=== PATIENT | female | born 1960 | race Caucasian/White ===

== ENCOUNTER 2017-08-14 14:42 | Inpatient (IN) ==
[2017-08-14 16:05] LABS: Apearance,Urine Slightly Hazy (Clear); Bilirubin,Urine Negative (Negative); Blood, Urine Moderate mg/dL (Negative); Glucose,Urine (UA) Negative (Negative); Ketones,Urine Negative (Negative); Nitrite,Urine Negative (Negative); Protein,Urine 30 MG/DL; RBC,Urine 8 /HPF (0-4); Squamous Epithelial Cell,Urine Occasional /HPF (0-10); Urine Color Yellow (Yellow); Urine Specific Gravity 1.011 (1.001-1.035); WBC,Urine 2 /HPF (0-6)
[2017-08-14 16:08] LABS: Barbiturates Screen,Urine Negative (Negative); Benzodiazepines Screen,Urine Positive (Negative); Cannabinoid Screen,Urine Negative (Negative); Opiate Screen,Urine Positive (Negative); Phencyclidine Screen,Urine Negative (Negative)
[2017-08-14 16:50] LABS: Basophils % 0.1 % (0.0-0.8); Hematocrit 34.8 VOL% (35.7-47.0); Hemoglobin 11.7 GM/DL (12.0-16.0); Immature Granulocytes % 0.5 %; Immature Granulocytes Absolute 0.07 #; Lymphocytes # 0.7 10*3/uL (1.4-4.0); Mean Corpuscular HGB Conc 33.6 GM/DL (32-36); Mean Corpuscular Hemoglobin 30 PG (27-34); Mean Corpuscular Volume 89.5 FL (87-102); Mean Platelet Volume 11.8 FL (9.6-12.0); Monocytes # 0.7 10*3/uL (0.11-0.8); Monocytes % 5.2 % (1.7-12.7); NRBC # 0.02 10*3/uL; Neutrophils # 12.4 10*3/uL (1.4-7.4); Neutrophils % 89.2 % (38.7-73.9); Platelet Count 231 T/CUMM (130-400); Red Blood Count 3.89 MC/CUMM (3.8-5.5); Red Cell Distribution Width 12.8 % (9.3-17.3); White Blood Count 13.9 T/CUMM (4-12)
[2017-08-14 17:02] LABS: ABG HCO3 27.9 MMOL/L (20-26); ABG Oxygen Saturation 90.4 % (95-100); ABG PCO2 46.7 MM HG (35-48); ABG PH 7.408 (7.35-7.45); ABG PO2 62.2 MM HG (80-95); ABG TCO2 26.4 MMOL/L (23-27); Allen Test Positive; Pt O2 Delivery Device Room Air
[2017-08-14 17:32] LABS: Albumin 2.9 G/DL (3.4-5.0); Bilirubin,Total 0.9 MG/DL (0.2-1.0); Calcium 7.5 MG/DL (8.5-10.1); Osmolality,Calculated 285.7 MOS/KG (273-304); Potassium 3.3 MMOL/L (3.5-5.1); Total Protein 7.2 G/DL (6.4-8.3)
[2017-08-14 17:33] LABS: Troponin I Only 1.59 NG/ML (0.00-0.045)
[2017-08-14] MEDS ORDERED: ONDANSETRON 4 MG/2 ML VIAL IV PRN (18:33)
[2017-08-14] MEDS ORDERED: SODIUM CHLORIDE 0.9% 1,000 ML IV ONE (18:36)
[2017-08-14] MEDS ORDERED: ALBUTEROL/IPRATROPIUM 3 ML NEB RESP TX PRN (18:38)
[2017-08-14] MEDS: ALBUTEROL/IPRATROPIUM 3 ML NEB RESP TX SCH (19:41)
[2017-08-14 19:58] LABS: Hepatitis A Ab IgM Quant 0.08 Index; Hepatitis A Ab IgM Result Negative (Negative); Hepatitis B Core IgM Quant 0.16 Index; Hepatitis B Core IgM Result Negative (Negative); Hepatitis B Surface Ag Quant < 0.10 Index; Hepatitis B Surface Ag Result Negative (Negative); Hepatitis C Virus Ab Quant 0.11 Index; Hepatitis C Virus Ab Result Negative (Negative)
[2017-08-14] MEDS: SODIUM CHLOR 0.9% KCL 20 MEQ 20 MEQ/1,000 ML BAG IV SCH (22:15)
[2017-08-14] MEDS: ISOSORBIDE MONONITRATE 30 MG TABLET PO SCH (22:57)
[2017-08-14] MEDS: ARIPiprazole 10 MG TABLET PO SCH (23:02)
[2017-08-14] MEDS: ASPIRIN EC 81 MG TABLET PO SCH (23:02)
[2017-08-15] MEDS: ALBUTEROL/IPRATROPIUM 3 ML NEB RESP TX SCH ×4 (00:58→20:15)
[2017-08-15] MEDS: SODIUM CHLOR 0.9% KCL 20 MEQ 20 MEQ/1,000 ML BAG IV SCH ×4 (06:15→17:40)
[2017-08-15] MEDS: LEVOTHYROXINE 50 MCG TABLET PO SCH (06:24)
[2017-08-15 06:29] LABS: Basophils % 0.1 % (0.0-0.8); Hematocrit 32.8 VOL% (35.7-47.0); Hemoglobin 11.1 GM/DL (12.0-16.0); Immature Granulocytes % 0.7 %; Immature Granulocytes Absolute 0.07 #; Lymphocytes # 0.9 10*3/uL (1.4-4.0); Lymphocytes % 8.4 % (21.3-54.2); Mean Corpuscular HGB Conc 33.8 GM/DL (32-36); Mean Corpuscular Hemoglobin 30 PG (27-34); Mean Corpuscular Volume 89.1 FL (87-102); Mean Platelet Volume 12.2 FL (9.6-12.0); Monocytes # 0.6 10*3/uL (0.11-0.8); Monocytes % 5.6 % (1.7-12.7); NRBC # 0.02 10*3/uL; Neutrophils % 85.2 % (38.7-73.9); Platelet Count 200 T/CUMM (130-400); Red Blood Count 3.68 MC/CUMM (3.8-5.5); Red Cell Distribution Width 12.7 % (9.3-17.3); White Blood Count 10.5 T/CUMM (4-12)
[2017-08-15 06:58] LABS: Albumin 2.7 G/DL (3.4-5.0); Bilirubin,Total 1.1 MG/DL (0.2-1.0); Osmolality,Calculated 289.3 MOS/KG (273-304); Potassium 3.3 MMOL/L (3.5-5.1); Risk Ratio 2.35; Total Protein 5.9 G/DL (6.4-8.3)
[2017-08-15] MEDS: PANTOPRAZOLE 40 MG TABLET PO SCH (08:37)
[2017-08-15] MEDS: ENOXAPARIN 30 MG/0.3 ML SYRINGE SUBCUT SCH (08:37)
[2017-08-15] MEDS ORDERED: POTASSIUM CHLORIDE 20 MEQ TABLET PO ONE (10:41)
[2017-08-15 11:26] LABS: % Iron Saturation 7.5 % (18-50)
[2017-08-15] MEDS: MORPHINE ER 30 MG TABLET PO SCH (12:09)
[2017-08-15] MEDS: ASPIRIN EC 81 MG TABLET PO SCH (21:35)
[2017-08-15] MEDS: ARIPiprazole 10 MG TABLET PO SCH (21:35)
[2017-08-15] MEDS: ISOSORBIDE MONONITRATE 30 MG TABLET PO SCH (21:35)
[2017-08-16] MEDS: ALBUTEROL/IPRATROPIUM 3 ML NEB RESP TX SCH ×4 (00:18→19:04)
[2017-08-16] MEDS: MORPHINE ER 30 MG TABLET PO SCH ×3 (02:02→23:30)
[2017-08-16] MEDS: SODIUM CHLOR 0.9% KCL 20 MEQ 20 MEQ/1,000 ML BAG IV SCH ×2 (02:02→04:09)
[2017-08-16 05:22] LABS: INR 1.2; PT Patient Result 12.5 SECS
[2017-08-16 05:45] LABS: Albumin 2.3 G/DL (3.4-5.0); Bilirubin,Total 1.3 MG/DL (0.2-1.0); Calcium 6.9 MG/DL (8.5-10.1); Osmolality,Calculated 286.8 MOS/KG (273-304); Total Protein 5.1 G/DL (6.4-8.3)
[2017-08-16 05:48] LABS: Albumin 2.3 G/DL (3.4-5.0); Bilirubin,Direct 0.57 MG/DL (0.0-0.20); Bilirubin,Indirect 0.9 MG/DL (0.0-1.0); Bilirubin,Total 1.5 MG/DL (0.2-1.0); Total Protein 5.3 G/DL (6.4-8.3)
[2017-08-16] MEDS: LEVOTHYROXINE 50 MCG TABLET PO SCH (05:48)
[2017-08-16] MEDS: PANTOPRAZOLE 40 MG TABLET PO SCH (08:35)
[2017-08-16] MEDS: ENOXAPARIN 30 MG/0.3 ML SYRINGE SUBCUT SCH (08:35)
[2017-08-16] MEDS: SODIUM CHLORIDE 0.45% 1,000 ML IV SCH (10:50)
[2017-08-16] MEDS: ARIPiprazole 10 MG TABLET PO SCH (21:34)
[2017-08-16] MEDS: oxyCODONE/ACETAMINOPHEN 5-325 MG TABLET PO PRN (21:34)
[2017-08-16] MEDS: ASPIRIN EC 81 MG TABLET PO SCH (21:34)
[2017-08-16] MEDS: ISOSORBIDE MONONITRATE 30 MG TABLET PO SCH (21:35)
[2017-08-17] MEDS: ALBUTEROL/IPRATROPIUM 3 ML NEB RESP TX SCH ×3 (00:55→13:41)
[2017-08-17] MEDS: LEVOTHYROXINE 50 MCG TABLET PO SCH (05:38)
[2017-08-17 06:04] LABS: INR 1.1; PT Patient Result 11.8 SECS
[2017-08-17 06:32] LABS: Albumin 2.2 G/DL (3.4-5.0); Bilirubin,Total 1.4 MG/DL (0.2-1.0); Calcium 6.8 MG/DL (8.5-10.1); Potassium 3.7 MMOL/L (3.5-5.1); Total Protein 4.9 G/DL (6.4-8.3)
[2017-08-17 06:42] LABS: Albumin 2.2 G/DL (3.4-5.0); Bilirubin,Direct 0.68 MG/DL (0.0-0.20); Bilirubin,Indirect 0.5 MG/DL (0.0-1.0); Bilirubin,Total 1.2 MG/DL (0.2-1.0)
[2017-08-17] MEDS: SODIUM CHLORIDE 0.45% 1,000 ML IV SCH ×2 (07:40→14:11)
[2017-08-17] MEDS ORDERED: ENOXAPARIN 40 MG/0.4 ML SYRINGE SUBCUT SCH (09:00)
[2017-08-17] MEDS: PANTOPRAZOLE 40 MG TABLET PO SCH (09:25)
[2017-08-17] MEDS: oxyCODONE/ACETAMINOPHEN 5-325 MG TABLET PO PRN (09:30)
[2017-08-17 10:59] VITALS: BP 149/90
[2017-08-17] MEDS: MORPHINE ER 30 MG TABLET PO SCH (14:09)
[2017-08-17] MEDS ORDERED: ERGOCALCIFEROL 50,000 UNIT CAPSULE PO SCH (18:34)
== END 2017-08-17 14:42 | disposition home or self-care (01) | DRG 917 ==
LOC: N.ED 14:42 → N.EDINP 17:56 → N.CC 21:52 → N.3E 08-15 13:44
PROVIDERS: ADMIT Internal Medicine; ATTEND Internal Medicine

== ENCOUNTER 2021-05-05 17:52 | Inpatient (IN) ==
[2021-05-05 20:27] LABS: Hematocrit 31.1 VOL% (35.7-47.0); Hemoglobin 9.8 GM/DL (12.0-16.0); Immature Granulocytes % 0.5 %; Immature Granulocytes Absolute 0.05 #; Lymphocytes # 1.4 10*3/uL (1.4-4.0); Lymphocytes % 14.8 % (21.3-54.2); Mean Corpuscular HGB Conc 31.5 GM/DL (32-36); Mean Corpuscular Volume 91.2 FL (87-102); Monocytes % 8.9 % (1.7-12.7); Neutrophils % 75.8 % (38.7-73.9); Platelet Count 399 T/CUMM (130-400); Red Blood Count 3.41 MC/CUMM (3.8-5.5); Red Cell Distribution Width 17.2 % (9.3-17.3); White Blood Count 9.6 T/CUMM (4-12)
[2021-05-05 20:39] LABS: Blood, Urine Negative (Negative); Glucose,Urine (UA) Negative (Negative); Ketones,Urine Negative (Negative); Mucus,Urine Occasional /LPF (Occasional); Nitrite,Urine Negative (Negative); Protein,Urine Negative; RBC,Urine 10 /HPF (0-4); Squamous Epithelial Cell,Urine Occasional /HPF (0-10); Urine Appearance CLEAR (Clear); Urine Color Amber (Yellow); Urine Specific Gravity 1.018 (1.001-1.035)
[2021-05-05 20:40] LABS: Bilirubin,Urine Moderate mg/dL (Negative)
[2021-05-05 20:49] LABS: Albumin 2.4 G/DL (3.4-5.0); Bilirubin,Total 9.8 MG/DL (0.20-1.00); Calcium 8.5 MG/DL (8.5-10.1); Osmolality,Calculated 268.2 MOS/KG (273-304); Potassium 4.1 MMOL/L (3.5-5.1); Total Protein 6.2 G/DL (6.4-8.2)
[2021-05-05 21:35] LABS: Hepatitis B Core IgM Quant 0.14 Index; Hepatitis B Surface Ag Quant < 0.10 Index; Hepatitis B Surface Ag Result Non-Reactive (NonReactive); Hepatitis C Virus Ab Quant 0.07 Index; Hepatitis C Virus Ab Result Non-Reactive (NonReactive)
[2021-05-05] MEDS ORDERED: DEXTROSE 50% 25 GM/50 ML SYRINGE IV PRN (22:29)
[2021-05-05] MEDS ORDERED: GLUCAGON 1 MG VIAL IM PRN (22:29)
[2021-05-06] MEDS: LACTATED RINGERS 1,000 ML IV SCH ×2 (00:05→15:50)
[2021-05-06 04:47] LABS: Hematocrit 30.7 VOL% (35.7-47.0); Hemoglobin 9.6 GM/DL (12.0-16.0); Immature Granulocytes % 0.3 %; Immature Granulocytes Absolute 0.02 #; Lymphocytes # 1.5 10*3/uL (1.4-4.0); Lymphocytes % 20.8 % (21.3-54.2); Mean Corpuscular HGB Conc 31.3 GM/DL (32-36); Mean Corpuscular Volume 90.8 FL (87-102); Monocytes % 9.9 % (1.7-12.7); Platelet Count 368 T/CUMM (130-400); Red Blood Count 3.38 MC/CUMM (3.8-5.5); Red Cell Distribution Width 17.1 % (9.3-17.3); White Blood Count 7.3 T/CUMM (4-12)
[2021-05-06 05:29] LABS: Bilirubin,Total 9.7 MG/DL (0.20-1.00); Calcium 8.2 MG/DL (8.5-10.1); Osmolality,Calculated 275.5 MOS/KG (273-304); Potassium 3.8 MMOL/L (3.5-5.1); Risk Ratio 15.23; Thyroid Stimulating Hormone 2.69 uIU/ml (0.358-3.74); Total Protein 6.4 G/DL (6.4-8.2); VLDL Cholesterol 14.2 MG/DL
[2021-05-06 07:39] LABS: % Iron Saturation 12.1 % (18-50)
[2021-05-06] MEDS ORDERED: MELATONIN 3 MG TABLET PO PRN (08:53)
[2021-05-06] MEDS ORDERED: PANTOPRAZOLE 40 MG TABLET PO SCH (09:00)
[2021-05-06] MEDS: ONDANSETRON 4 MG/2 ML VIAL IV PRN ×3 (09:21→20:57)
[2021-05-06] MEDS: GABAPENTIN 300 MG CAPSULE PO SCH ×3 (10:41→20:55)
[2021-05-06] MEDS: DOCUSATE SODIUM 100 MG CAPSULE PO SCH (10:41)
[2021-05-06] MEDS: busPIRone 15 MG TABLET PO SCH ×2 (10:41→20:54)
[2021-05-06] MEDS: LINACLOTIDE 145 MCG CAPSULE PO SCH (15:10)
[2021-05-06] MEDS: BUDESONIDE/FORMOTEROL 160-4.5 INHALER 6 GM INH SCH ×2 (15:10→20:55)
[2021-05-06] MEDS: traZODone 50 MG TABLET PO SCH (20:55)
[2021-05-06] MEDS ORDERED: ENOXAPARIN 40 MG/0.4 ML SYRINGE SUBCUT SCH (21:00)
[2021-05-07] MEDS: ONDANSETRON 4 MG/2 ML VIAL IV PRN ×4 (03:53→20:53)
[2021-05-07 05:11] LABS: Hematocrit 29.6 VOL% (35.7-47.0); Hemoglobin 9.2 GM/DL (12.0-16.0); Immature Granulocytes % 0.3 %; Immature Granulocytes Absolute 0.02 #; Lymphocytes # 1.5 10*3/uL (1.4-4.0); Lymphocytes % 23.8 % (21.3-54.2); Mean Corpuscular HGB Conc 31.1 GM/DL (32-36); Mean Corpuscular Volume 91.9 FL (87-102); Mean Platelet Volume 11.1 FL (9.6-12.0); Monocytes % 11.9 % (1.7-12.7); Platelet Count 389 T/CUMM (130-400); Red Blood Count 3.22 MC/CUMM (3.8-5.5); Red Cell Distribution Width 17.3 % (9.3-17.3); White Blood Count 6.3 T/CUMM (4-12)
[2021-05-07 05:38] LABS: Albumin 1.9 G/DL (3.4-5.0); Bilirubin,Total 6.4 MG/DL (0.20-1.00); Calcium 8.6 MG/DL (8.5-10.1); Potassium 3.7 MMOL/L (3.5-5.1); Total Protein 6.2 G/DL (6.4-8.2)
[2021-05-07] MEDS: PANTOPRAZOLE 40 MG TABLET PO SCH (05:38)
[2021-05-07] MEDS: LACTATED RINGERS 1,000 ML IV SCH ×2 (06:15→22:21)
[2021-05-07] MEDS: BUDESONIDE/FORMOTEROL 160-4.5 INHALER 6 GM INH SCH ×2 (09:48→22:21)
[2021-05-07] MEDS: GABAPENTIN 300 MG CAPSULE PO SCH ×3 (09:52→20:52)
[2021-05-07] MEDS: LINACLOTIDE 145 MCG CAPSULE PO SCH (09:52)
[2021-05-07] MEDS: DOCUSATE SODIUM 100 MG CAPSULE PO SCH (09:52)
[2021-05-07] MEDS: busPIRone 15 MG TABLET PO SCH ×2 (09:52→20:52)
[2021-05-07] MEDS: traZODone 50 MG TABLET PO SCH (22:20)
[2021-05-08] MEDS: ONDANSETRON 4 MG/2 ML VIAL IV PRN ×3 (05:10→14:32)
[2021-05-08 05:16] LABS: Hematocrit 31.5 VOL% (35.7-47.0); Hemoglobin 9.6 GM/DL (12.0-16.0); Immature Granulocytes % 0.2 %; Immature Granulocytes Absolute 0.01 #; Lymphocytes # 1.6 10*3/uL (1.4-4.0); Lymphocytes % 29.2 % (21.3-54.2); Mean Corpuscular HGB Conc 30.5 GM/DL (32-36); Mean Corpuscular Volume 92.6 FL (87-102); Mean Platelet Volume 11.2 FL (9.6-12.0); Monocytes % 12.7 % (1.7-12.7); Neutrophils % 57.9 % (38.7-73.9); Platelet Count 450 T/CUMM (130-400); Red Cell Distribution Width 17.5 % (9.3-17.3); White Blood Count 5.4 T/CUMM (4-12)
[2021-05-08] MEDS: PANTOPRAZOLE 40 MG TABLET PO SCH (05:30)
[2021-05-08 05:41] LABS: Bilirubin,Total 5.6 MG/DL (0.20-1.00); Calcium 8.8 MG/DL (8.5-10.1); Potassium 4.1 MMOL/L (3.5-5.1); Total Protein 6.5 G/DL (6.4-8.2)
[2021-05-08] MEDS: DOCUSATE SODIUM 100 MG CAPSULE PO SCH (09:57)
[2021-05-08] MEDS: busPIRone 15 MG TABLET PO SCH (09:57)
[2021-05-08] MEDS: GABAPENTIN 300 MG CAPSULE PO SCH ×2 (09:58→14:32)
[2021-05-08] MEDS: BUDESONIDE/FORMOTEROL 160-4.5 INHALER 6 GM INH SCH (09:58)
[2021-05-08] MEDS: LINACLOTIDE 145 MCG CAPSULE PO SCH (09:59)
[2021-05-08] MEDS ORDERED: MEROPENEM 500 MG in SODIUM CHLORIDE 0.9% 100 ML IV SCH (11:00)
[2021-05-08] MEDS ORDERED: LEVOFLOXACIN INJ 500 MG/100 ML PREMIX IV SCH (11:00)
[2021-05-08 11:37] VITALS: BP 105/54
[2021-05-08] MEDS ORDERED: metroNIDAZOLE INJ 500 MG/100 ML PREMIX IV SCH (13:00)
[2021-05-08] MEDS: LACTATED RINGERS 1,000 ML IV SCH (13:18)
[2021-05-10 12:06] LABS: Antinuclear Ab, S 0.7 U
[2021-05-10 12:32] LABS: Mitochondrial Antibody (M2) <0.1 U
[2021-05-11 12:51] LABS: Smooth Muscle Antibody Negative (Negative)
== END 2021-05-08 14:45 | disposition hospice, home (50) | DRG 445 ==
LOC: N.EDINP 17:52 → N.ED 17:52 → SUATTDRO 22:51 → N.5E 23:18
PROVIDERS: ADMIT Internal Medicine; ATTEND Internal Medicine